=== PATIENT | male | born 1975 | race Caucasian/White ===

== ENCOUNTER 2021-01-02 15:48 | Emergency (ER) | payer OTHER ==
[2021-01-02 17:07] LABS: HIV (1/2) Antibody/Antigen Non-Reactive (NonReactive); HIV 1/2 INDEX 0.06 S/CO (<1.00)
[2021-01-02 20:33] LABS: Hep C IgG Ab Non-Reactive (NonReactive); Hep C Index 0.05 S/CO (0-0.79)
[2021-01-02 20:36] LABS: HBSAB Concentration 772.53 mIU/mL; Hep B Surf AB Reactive (NonReactive)
== END 2021-01-02 16:21 | disposition home or self-care (01) ==
LOC: CSHERS 15:48
DX: Z53.21 Procedure and treatment not carried out due to patient leaving prior to being seen by health care provider (principal)
CPT/HCPCS: 86706; 86803; 87389

== ENCOUNTER 2021-12-24 15:42 | Outpatient (CLI) | payer OTHER | END 2021-12-24 15:43 | disposition home or self-care (01) | LOC: CSHMRI 15:42 | PROVIDERS: ATTEND Orthopaedic Surgery | DX: S43.431A Superior glenoid labrum lesion of right shoulder, initial encounter (principal); S43.432A Superior glenoid labrum lesion of left shoulder, initial encounter; M19.012 Primary osteoarthritis, left shoulder; M85.68 Other cyst of bone, other site; M75.92 Shoulder lesion, unspecified, left shoulder ==